=== PATIENT | female | born 1935 | race Caucasian/White ===

== ENCOUNTER 2017-11-24 17:33 | Outpatient (RCR) | payer MEDICARE, OTHER ==
[2017-11-10 20:00] VITALS: BP 138/90
[2017-11-10 20:35] VITALS: BP 147/83
[2017-11-11 09:39] VITALS: BP 138/68
[2017-11-11 10:18] VITALS: BP 130/82
[2017-11-11 19:58] VITALS: BP 120/68
[2017-11-11 20:35] VITALS: BP 131/78
[2017-11-12 08:11] VITALS: BP 115/79
[2017-11-12 08:52] VITALS: BP 117/54
[2017-11-12 20:10] VITALS: BP 132/77
[2017-11-12 20:55] VITALS: BP 115/61
[2017-11-13 08:04] VITALS: BP 131/78
[2017-11-13 08:43] VITALS: BP 144/80
[2017-11-13 20:03] VITALS: BP 133/71
[2017-11-13 20:52] VITALS: BP 119/77
[2017-11-14 08:31] VITALS: BP 143/80; BP 152/90
[2017-11-14 20:12] VITALS: BP 128/68
[2017-11-15 08:17] VITALS: BP 135/85
[2017-11-15 19:57] VITALS: BP 129/87
[2017-11-15 20:30] VITALS: BP 114/69
[2017-11-16 08:09] VITALS: BP 131/81
[2017-11-16 19:56] VITALS: BP 122/73
[2017-11-16 20:30] VITALS: BP 101/53
[2017-11-17 08:09] VITALS: BP 124/81
[2017-11-17 08:45] VITALS: BP 131/69
[2017-11-17 20:05] VITALS: BP 123/72
[2017-11-17 20:43] VITALS: BP 136/88
[2017-11-18 08:12] VITALS: BP 125/70
[2017-11-18 09:05] VITALS: BP 114/78
[2017-11-18 19:52] VITALS: BP 134/84
[2017-11-18 20:22] VITALS: BP 127/79
[2017-11-19 08:13] VITALS: BP 111/72
[2017-11-19 08:45] VITALS: BP 123/70
[2017-11-19 19:47] VITALS: BP 119/88
[2017-11-19 20:15] VITALS: BP 135/75
[2017-11-20 07:45] VITALS: BP 124/66
[2017-11-20 08:22] VITALS: BP 114/66
[2017-11-20 20:27] VITALS: BP 108/69
[2017-11-20 20:49] VITALS: BP 132/92
[2017-11-21 07:43] VITALS: BP 112/67
[2017-11-21 08:24] VITALS: BP 116/58
[2017-11-21 19:43] VITALS: BP 130/72
[2017-11-21 20:23] VITALS: BP 133/74
[2017-11-22 08:02] VITALS: BP 118/66
[2017-11-22 08:38] VITALS: BP 133/79
[2017-11-22 20:14] VITALS: BP 122/73
[2017-11-22 20:33] VITALS: BP 112/70
[2017-11-23 07:00] VITALS: BP 131/74
[2017-11-23 19:22] VITALS: BP 134/87
[2017-11-23 19:58] VITALS: BP 133/76
--- NOTE | 2017-11-23 20:16 | NUR ---
PT REC'D FINAL INFUSION PER ORDER. REPORTS THAT SHE WILL SEE DR TELLES 11/24/17 AT 1330. WILL FIND OUT AT THAT TIME IF PICC IS TO BE PULLED, IF SO PT WILL RETURN WITH ORDER FROM DR. TELLES.
[~2017-11-24] VITALS: Ht 167.6 cm; Wt 65.0 kg
[~2017-11-24 17:33] MED LIST: CALCIUM 600 MG-1 TAB PO; CARDIZEM CD 24240 MG PO; COUMADIN 1MG1 MG/TAB PO; K-TAB20 MEQ PO; LASIX20 M1 PO; MULTI-VITAMIN1 EACH PO; RT SPIRIVA INH18 MCG IH; SYNTHROID RP0.088 MG PO; TOPROL XL100 MG PO; TUMS REGULAR S500 MG PO; ZANTAC300 MG PO
[2017-11-24 17:40] VITALS: BP 146/99
== END 2017-11-24 17:35 | disposition home or self-care (01) ==
LOC: AMSURD 17:33
DX: J47.9 Bronchiectasis, uncomplicated (principal); B96.5 Pseudomonas (aeruginosa) (mallei) (pseudomallei) as the cause of diseases classified elsewhere
CPT/HCPCS: J0713; J1644